=== PATIENT | male | born 1955 | race Caucasian/White ===

== ENCOUNTER 2025-02-11 07:41 | Day surgery (SDC) | payer MEDICARE ==
[~2025-02-11] VITALS: Ht 182.9 cm; Wt 120.0 kg
[2025-02-11] VITALS (7 sets, daily range): BP systolic 103–133; BP diastolic 57–80
[~2025-02-11 07:41] MED LIST: AMLO10 PO; DONE10 PO; FURO40 PO; LABE200 PO; LISI20 PO; MEMA10 PO; PANT20 PO; POTCHL20ER PO; SERT50 PO
[2025-02-11] MEDS ORDERED: Aspirin 325 MG Tab ONE (09:41)
[2025-02-11] MEDS ORDERED: Heparin Sodium 1000 Units/ML 10ML MDV ONE (09:44)
[2025-02-11] MEDS ORDERED: Verapamil HCL 2.5 MG/ML 2ML Injection ONE (09:44)
[2025-02-11] MEDS ORDERED: NS 1,000 ML IV ONE ×2 (09:44→09:47)
[2025-02-11] MEDS ORDERED: NS 250 ML IV ONE (09:44)
[2025-02-11] MEDS ORDERED: Nitroglycerin 2 MG/20 ML BTL ONE (09:45)
[2025-02-11] MEDS ORDERED: Midazolam HCl 1MG / ML 2ML Vial ONE (09:47)
[2025-02-11] MEDS ORDERED: FentaNYL Citrate 50 MCG/ML 2 ML Injection ONE (09:47)
[2025-02-11] MEDS ORDERED: Atropine Sulfate 0.1 MG/ML 10ML SYR ONE (10:15)
--- NOTE | 2025-02-11 11:00 | NUR ---
PT ARRIVES BACK TO RECOVERY ROOM IN RECLINER, ALERT AND ORIENTED. PT VSS UPON ARRIVAL. TR BAND IN PLACE TO RIGHT RADIAL, SITE WNL, NO OOZING NO HEMATOMA. 10CC IN BAND. PT. DENIES ANY CHEST PAIN/ PRESSURE. PROVIDED WITH BREAKFAST AND WATER PER PT REQUEST. IVS SALINE LOCKED. CALL LIGHT IN REACH. QING
--- NOTE | 2025-02-11 12:30 | NUR ---
tr band delfated per protocol. no oozing, or swelling to site noted. pt vss remain stable. pt sister updated on results by Dr. Dumont. Pt remains up in recliner plans for dc in 1 hr.
--- NOTE | 2025-02-11 13:31 | NUR ---
pt able to get self dressed with out difficulty. Discharge instructions reviewed with pt and also with sister due to pt dx of dementia. Pt. TR band removed, site wnl, no oozing or swelling noted to site. Pt. arm board replaced prior to departure and sling provided as well as reminder. PT. had no further questions, follow up scheduled. no new medications. vss upon departure.
--- NOTE | 2025-02-11 13:33 | NUR ---
PT TAKEN TO EXIT VIA VOLUNTEER, PT SISTER YENIFER TO PICK PT UP.
== END 2025-02-11 13:44 | disposition home or self-care (01) ==
LOC: MHTC 07:41
DX: I25.10 Atherosclerotic heart disease of native coronary artery without angina pectoris (principal); I48.20 Chronic atrial fibrillation, unspecified; F03.90 Unspecified dementia, unspecified severity, without behavioral disturbance, psychotic disturbance, mood disturbance, and anxiety; I49.5 Sick sinus syndrome; G47.33 Obstructive sleep apnea (adult) (pediatric); I10 Essential (primary) hypertension; E78.5 Hyperlipidemia, unspecified; E66.9 Obesity, unspecified; Z68.36 Body mass index [BMI] 36.0-36.9, adult; Z87.820 Personal history of traumatic brain injury; Z79.899 Other long term (current) drug therapy; Z91.018 Allergy to other foods; Z91.030 Bee allergy status; Z95.0 Presence of cardiac pacemaker; Z95.818 Presence of other cardiac implants and grafts
CPT/HCPCS: 76937; 93458; 99152; A9270; C1769; C1887; J0461; J1644; J2250; J3010; J7030; J7050; Q9967